=== PATIENT | male | born 1975 | race African-American/Black ===

== ENCOUNTER 2023-09-30 16:04 | Observation (INO) | payer OTHER ==
[2023-09-30 16:54] LABS: Basophils # (A) 0.1 k/uL (0-0.2); Basophils % (A) 2 %; Eosinophils # (A) 0.1 k/uL (0-0.7); Eosinophils % (A) 2 %; HCT 44.1 % (39.0-53.0); Lymphocytes # (A) 1.5 k/uL (1.0-4.8); Lymphocytes % (A) 31 %; MCH 32.8 pg (25.0-35.0); MCHC 31.7 g/dL (31.0-37.0); MCV 103.5 fL (80.0-100.0); Macrocytosis Slight; Mean Platelet Volume 8.9; Monocytes # (A) 0.3 k/uL (0-1.0); Monocytes % (A) 7 %; Neutrophils # (A) 2.8 k/uL (1.3-7.7); Neutrophils % (A) 57 %; Platelet Count 189 k/uL (150-450); RBC 4.26 m/uL (4.30-5.90); RDW 14.4 % (11.5-15.5); WBC 4.9 k/uL (3.8-10.6)
--- NOTE | 2023-09-30 17:04 | XR ---
EXAMINATION TYPE: XR chest 2V DATE OF EXAM: 09/30/2023 4:55 PM CLINICAL INDICATION:Male, 48 years old with history of Chest Pain; COMPARISON: None TECHNIQUE: XR chest 2V Frontal and lateral views of the chest. FINDINGS: Lungs/Pleura: There is no evidence of pleural effusion, focal consolidation, or pneumothorax. Pulmonary vascularity: Unremarkable. Heart/mediastinum: Cardiomediastinal silhouette is unremarkable. Musculoskeletal: No acute osseous pathology. IMPRESSION: No acute cardiopulmonary disease/process.
[2023-09-30 17:05] LABS: Partial Thromboplastin Time 24.3 sec (22.0-30.0); Prothrombin Time 10.8 sec (10.0-12.5)
[2023-09-30 17:15] LABS: ALT 42 U/L (4-49); AST 104 U/L (17-59); African American GFR (CKD) >90 (>60 ml/min/1.73 sqM); Albumin 4.9 g/dL (3.5-5.0); Alkaline Phosphatase 76 U/L (38-126); Anion Gap 19 mmol/L; Blood Urea Nitrogen 6 mg/dL (9-20); Calcium 8.6 mg/dL (8.4-10.2); Carbon Dioxide 20 mmol/L (22-30); Chloride 98 mmol/L (98-107); Glucose 72 mg/dL (74-99); Magnesium 1.3 mg/dL (1.6-2.3); Non-African American GFR(CKD) >90 (>60 ml/min/1.73 sqM); Potassium 4.3 mmol/L (3.5-5.1); Sodium 137 mmol/L (137-145); Total Bilirubin 0.8 mg/dL (0.2-1.3); Total Protein 7.6 g/dL (6.3-8.2)
[2023-09-30 17:24] LABS: Alcohol 97 mg/dL
[2023-09-30] MEDS: LORazepam 2 MG/ML INJ IV STA (18:28)
[2023-09-30] MEDS ORDERED: NALOXONE 0.4 MG/ML 1 ML VIAL IV PRN (19:22)
--- NOTE | 2023-09-30 19:22 | ED ---
Alcohol HPI - General Chief Complaint: Alcohol Stated Complaint: chest pain/etoh rethdrawl Time Seen by Provider: 09/30/23 16:10 Source: EMS Mode of arrival: EMS Limitations: no limitations - History of Present Illness Initial Comments: 48-year-old male who presents emergency department from [facility]. Presents reporting chest pain. He just checked into [facility] this morning. States that he was ambulating the hallway when he had sudden onset of chest pressure. He had numbness to his bilateral upper extremities. Nursing staff took his blood pressure and found it to be low. Upon transport to the hospital he was given 4 aspirins and a nitro. He states that his pain shortly resolved after the nitro and patient arrives pain-free. He has no history of cardiac disease. Patient is at [facility] for alcohol. States he last drink 12 hours ago. Usually drinks a pint a day. Patient does feel slightly tremulous at this time. He denies any other drug use. No other alleviating, precipitating modifying factors - Related Data Home Medications Medication Instructions Recorded Confirmed Acetaminophen Tab [Tylenol] 650 mg PO Q4H PRN 09/30/23 09/30/23 Calcium/Magnesium/Zinc/Vitamin D 1 tab PO TID PRN 09/30/23 09/30/23 Chlorpheniramine Maleate 4 mg PO Q4H PRN 09/30/23 09/30/23 [Chlor-Trimeton] Doxazosin [Cardura] 2 mg PO DAILY 09/30/23 09/30/23 Empagliflozin [Jardiance] 25 mg PO DAILY 09/30/23 09/30/23 Hyoscyamine Sulfate [Levsin] 0.125 mg PO QID PRN 09/30/23 09/30/23 Ibuprofen [Motrin Ib] 600 mg PO Q6H PRN 09/30/23 09/30/23 Insulin Glargine [Lantus Vial] 9 unit SQ HS 09/30/23 09/30/23 Insulin Regular, Human [NovoLIN R] See Protocol SQ W/LUNCH 09/30/23 09/30/23 Loperamide HCl [Imodium A-D] 4 mg PO QID PRN 09/30/23 09/30/23 Mag Hydrox/Aluminum Hyd/Simeth 30 ml PO Q4H PRN 09/30/23 09/30/23 [Mylanta Maximum Strength Liq] Multivitamins, Thera [Multivitamin 1 tab PO DAILY 09/30/23 09/30/23 (formulary)] Thiamine [Vitamin B-1] 100 mg PO DAILY 09/30/23 09/30/23 guaiFENesin [guaiFENesin Oral 200 mg PO Q4H PRN 09/30/23 09/30/23 Solution] metFORMIN HCL [Glucophage] 1,000 mg PO BID 09/30/23 09/30/23 ondansetron HCL [Ondansetron HCl] 8 mg PO Q6H PRN 09/30/23 09/30/23 Allergies Allergy/AdvReac Type Severity Reaction Status Date / Time Penicillins Allergy Unknown Verified 09/30/23 17:16 Review of Systems ROS Statement: Those systems with pertinent positive or pertinent negative responses have been documented in the HPI. ROS Other: All systems not noted in ROS Statement are negative. Past Medical History Past Medical History: Unable to Obtain History of Any Multi-Drug Resistant Organisms: None Reported Past Surgical History: Unable to Obtain Past Psychological History: Anxiety Smoking Status: Current every day smoker Past Alcohol Use History: Abuse, Daily Past Drug Use History: None Reported General Exam Limitations: no limitations General appearance: alert, in no apparent distress Head exam: Present: atraumatic, normocephalic, normal inspection Eye exam: Present: normal appearance, PERRL, EOMI. Absent: scleral icterus, conjunctival injection, periorbital swelling ENT exam: Present: normal exam, mucous membranes moist Neck exam: Present: normal inspection. Absent: tenderness, meningismus, lymphadenopathy Respiratory exam: Present: normal lung sounds bilaterally. Absent: respiratory distress, wheezes, rales, rhonchi, stridor Cardiovascular Exam: Present: regular rate, normal rhythm, normal heart sounds. Absent: systolic murmur, diastolic murmur, rubs, gallop, clicks GI/Abdominal exam: Present: soft, normal bowel sounds. Absent: distended, tenderness, guarding, rebound, rigid Extremities exam: Present: normal inspection, full ROM, normal capillary refill. Absent: tenderness, pedal edema, joint swelling, calf tenderness Back exam: Present: normal inspection Neurological exam: Present: alert, oriented X3, CN II-XII intact Psychiatric exam: Present: normal affect, normal mood Skin exam: Present: warm, dry, intact, normal color. 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 sent in by a medical professional or institution (, JOHN, HEAD SUGAR REPROCESS OPERATOR, urgent c are, hospital, or shelter...) When possible be specific @ -[No] Did you speak to anyone other than the patient for history (EMS, parent, family, police, friend...)? What history was obtained from this source @ -[No] Did you review nursing and triage notes (agree or disagree)? Why? @ -[I reviewed and agree with nursing and triage notes] Were old charts reviewed (outside hosp., previous admission, EMS record, old EKG, old radiological studies, urgent care reports/EKG's, shelter records)? Report findings @ -[No old charts were reviewed] Differential Diagnosis (chest pain, altered mental status, abdominal pain women, abdominal pain men, vaginal bleeding, weakness, fever, dyspnea, syncope, headache, dizziness, GI bleed, back pain, seizure, CVA, palpatations, mental health, musculoskeletal)? @ -[not applicable] EKG interpreted by me (3pts min.). @ -Yes and demonstrates sinus rhythm with a rate of 97. DE interval 159. QRS 96. QTc of 451. No acute ST segment elevation. Inverted T waves V3V4, 2 and aVF X-rays interpreted by me (1pt min.). @ -[None done] CT interpreted by me (1pt min.). @ -[None done] U/S interpreted by me (1pt. min.). @ -[None done] What testing was considered but not performed or refused? (CT, X-rays, U/S, labs)? Why? @ -[None] What meds were considered but not given or refused? Why? @ -[None] Did you discuss the management of the patient with other professionals (professionals i.e. , JOHN, HEAD SUGAR REPROCESS OPERATOR, lab, RT, psych nurse, socially responsible investment adviser, metal and plastic heater, teacher, product safety officer, caseworker)? Give summary @ -[No] Was smoking cessation discussed for >3mins.? @ -[No] Was critical care preformed (if so, how long)? @ -[No] Were there social determinants of health that impacted care today? How? (Homelessness, low income, unemployed, alcoholism, drug addiction, transportation, low edu. Level, literacy, decrease access to med. care, retirement, rehab)? @ -[No] Was there de-escalation of care discussed even if they declined (Discuss DNR or withdrawal of care, Hospice)? DNR status @ -[No] What co-morbidities impacted this encounter? (DM, HTN, Smoking, COPD, CAD, Cancer, CVA, ARF, Chemo, Hep., AIDS, mental health diagnosis, sleep apnea, morbid obesity)? @ -[None] Was patient admitted / discharged? Hospital course, mention meds given and route, prescriptions, significant lab abnormalities, going to OR and other pertinent info. @ -[hospital course] Undiagnosed new problem with uncertain prognosis? @ -[No] Drug Therapy requiring intensive monitoring for toxicity (Heparin, Nitro, Insulin, Cardizem)? @ -[No] Were any procedures done? @ -[No] Diagnosis/symptom? @ -[default] Acute, or Chronic, or Acute on Chronic? @ -[default] Uncomplicated (without systemic symptoms) or Complicated (systemic symptoms)? @ -[default] Side effects of treatment? @ -[No] Exacerbation, Progression, or Severe Exacerbation? @ -[No] Poses a threat to life or bodily function? How? (Chest pain, USA, MS, pneumonia, PE, COPD, DKA, ARF, appy, cholecystitis, CVA, Diverticulitis, Homicidal, Suicidal, threat to staff... and all critical care pts) @ -[No] - Lab Data Result diagrams: 09/30/23 16:27 09/30/23 16:27 Lab Results 09/30/23 09/30/23 09/30/23 Range/Units 16:27 16:27 16: WBC 4.9 (3.8-10.6) k/uL RBC 4.26 L (4.30-5.90) m/uL Hgb 14.0 (13.0-17.5) gm/dL Hct 44.1 (39.0-53.0) % MCV 103.5 H (80.0-100.0) fL MCH 32.8 (25.0-35.0) pg MCHC 31.7 (31.0-37.0) g/dL RDW 14.4 (11.5-15.5) % Plt Count 189 (150-450) k/uL MPV 8.9 Neutrophils % 57 % Lymphocytes % 31 % Monocytes % 7 % Eosinophils % 2 % Basophils % 2 % Neutrophils # 2.8 (1.3-7.7) k/uL Lymphocytes # 1.5 (1.0-4.8) k/uL Monocytes # 0.3 (0-1.0) k/uL Eosinophils # 0.1 (0-0.7) k/uL Basophils # 0.1 (0-0.2) k/uL Macrocytosis Slight PT 10.8 (10.0-12.5) sec INR 1.0 (<1.2) APTT 24.3 (22.0-30.0) sec Sodium 137 (137-145) mmol/L Potassium 4.3 (3.5-5.1) mmol/L Chloride 98 (98-107) mmol/L Carbon Dioxide 20 L (22-30) mmol/L Anion Gap 19 mmol/L BUN 6 L (9-20) mg/dL Creatinine 0.66 (0.66-1.25) mg/dL Est GFR (CKD-EPI)AfAm >90 (>60 ml/min/1.73 sqM) Est GFR (CKD-EPI)NonAf >90 (>60 ml/min/1.73 sqM) Glucose 72 L (74-99) mg/dL Calcium 8.6 (8.4-10.2) mg/dL Magnesium 1.3 L (1.6-2.3) mg/dL Total Bilirubin 0.8 (0.2-1.3) mg/dL AST 104 H (17-59) U/L ALT 42 (4-49) U/L Alkaline Phosphatase 76 (38-126) U/L Troponin I (0.000-0.034) ng/mL Total Protein 7.6 (6.3-8.2) g/dL Albumin 4.9 (3.5-5.0) g/dL Serum Alcohol 97 mg/dL 09/30/23 Range/Units 16:27 WBC (3.8-10.6) k/uL RBC (4.30-5.90) m/uL Hgb (13.0-17.5) gm/dL Hct (39.0-53.0) % MCV (80.0-100.0) fL MCH (25.0-35.0) pg MCHC (31.0-37.0) g/dL RDW (11.5-15.5) % Plt Count (150-450) k/uL MPV Neutrophils % % Lymphocytes % % Monocytes % % Eosinophils % % Basophils % % Neutrophils # (1.3-7.7) k/uL Lymphocytes # (1.0-4.8) k/uL Monocytes # (0-1.0) k/uL Eosinophils # (0-0.7) k/uL Basophils # (0-0.2) k/uL Macrocytosis PT (10.0-12.5) sec INR (<1.2) APTT (22.0-30.0) sec Sodium (137-145) mmol/L Potassium (3.5-5.1) mmol/L Chloride (98-107) mmol/L Carbon Dioxide (22-30) mmol/L Anion Gap mmol/L BUN (9-20) mg/dL Creatinine (0.66-1.25) mg/dL Est GFR (CKD-EPI)AfAm (>60 ml/min/1.73 sqM) Est GFR (CKD-EPI)NonAf (>60 ml/min/1.73 sqM) Glucose (74-99) mg/dL Calcium (8.4-10.2) mg/dL Magnesium (1.6-2.3) mg/dL Total Bilirubin (0.2-1.3) mg/dL AST (17-59) U/L ALT (4-49) U/L Alkaline Phosphatase (38-126) U/L Troponin I <0.012 (0.000-0.034) ng/mL Total Protein (6.3-8.2) g/dL Albumin (3.5-5.0) g/dL Serum Alcohol mg/dL Disposition Clinical Impression: Alcoholic intoxication, Chest pain, Alcohol withdrawal syndrome Disposition: ADMITTED IP TO THIS HOSP Condition: Stable Is patient prescribed a controlled substance at d/c from ED?: No Referrals: Mata Cooper DO [Primary Care Provider] - 1-2 days Time of Disposition: 19:21 Decision to Admit Reason: Admit from EC Decision Date: 09/30/23 Decision Time: 19:21
[2023-09-30] MEDS ORDERED: LORazepam 1 MG TAB PO PRN ×4 (19:25)
[2023-09-30] MEDS ORDERED: LORazepam 0.5 MG TAB PO PRN (19:25)
[2023-10-01 08:40] LABS: Basophils # (A) 0.08 X 10*3/uL (0.00-0.10); Basophils % (A) 1.3 %; Eosinophils # (A) 0.22 X 10*3/uL (0.04-0.35); Eosinophils % (A) 3.5 %; HCT 43.8 % (39.6-50.0); HGB 14.3 g/dL (13.0-17.0); Lymphocytes # (A) 2.16 X 10*3/uL (0.90-5.00); Lymphocytes % (A) 34.3 %; MCH 32.2 pg (27.0-32.0); MCHC 32.6 g/dL (32.0-37.0); MCV 98.6 FL (80.0-97.0); Mean Platelet Volume 11.9 FL (9.5-12.2); Monocytes # (A) 1.01 X 10*3/uL (0.20-1.00); NRBC Per 100 WBC 0 X 10*3/uL (0.00-0.01); Neutrophils # (A) 2.81 X 10*3/uL (1.80-7.70); Neutrophils % (A) 44.6 %; Platelet Count 191 X 10*3/uL (140-440); RBC 4.44 X 10*6/uL (4.40-5.60); RDW 15.4 % (11.5-14.5)
[2023-10-01 08:51] LABS: BUN/Creat Ratio 10.38 Ratio (12.00-20.00); Blood Urea Nitrogen 8.3 mg/dL (9.0-27.0); Calcium 8.5 mg/dL (8.7-10.3); Carbon Dioxide 20.8 mmol/L (21.6-31.8); Chloride 95 mmol/L (96-109); Glucose 68 mg/dL (70-110); Potassium 4.3 mmol/L (3.5-5.5); Sodium 136 mmol/L (135-145)
[2023-10-01] MEDS: DAPAGLIFLOZIN PROPANEDIOL 10 MG TABLET PO SCH (09:23)
[2023-10-01] MEDS: hydrALAZINE HCL 25 MG TAB PO STA (09:23)
[2023-10-01] MEDS ORDERED: guaiFENesin SYRUP 100MG/5ML 200 MG/10 ML CUP PO PRN (10:38)
[2023-10-01] MEDS ORDERED: ACETAMINOPHEN TAB 325 MG TAB PO PRN (10:38)
[2023-10-01] MEDS ORDERED: MAG HYDROX/AL HYDROX/SIMETH 30 ML CUP PO PRN (10:38)
[2023-10-01] MEDS ORDERED: ONDANSETRON 4 MG TAB PO PRN (10:38)
[2023-10-01] MEDS ORDERED: LOPERAMIDE 2 MG CAP PO PRN (10:38)
[2023-10-01] MEDS ORDERED: IBUPROFEN 600 MG TAB PO PRN (10:38)
[2023-10-01] MEDS ORDERED: DEXTROSE 50% SYRINGE 50 ML IVP PRN ×4 (10:39→15:04)
--- NOTE | 2023-10-01 11:07 | P.CRDCN ---
History of Present Illness Consult date: 10/01/23 Consult reason: chest pain History of present illness: This is a 48-year-old male with past medical history of hypertension, diabetes mellitus type 2. We have been asked to evaluate the patient for chest pain. Patient states that he came into the hospital due to chest tightness that started yesterday but is gone now. He is not sure how long it lasted. He thinks nitroglycerin helped. He also had some nausea but his appetite is okay and he denies any abdominal pain. He denies any history of cardiac problems and does not follow with a rn diabetes educator. He has had a stress test done a while back. Patient is drinking beer and vodka on almost a daily basis at 1 pint per day. He states his last intake was yesterday. He denies ever having DTs or requiring ICU admission for alcohol withdrawal. He states he feels sober now. He is a smoker of a half a pack per day he denies marijuana use. Blood pressure 152/85, heart rate 84, pulse ox 97% on room air. Patient was started on the CIWA protocol. EKG: Sinus rhythm with T wave inversion V3 V4 Chest x-ray: No acute process Laboratory studies: WBC 6.3, hemoglobin 14.3. Sodium 136, potassium 4.3. BUN 8.3 and creatinine 0.8. Troponins are negative x 3. Serum alcohol level 97. Home cardiac medications: Jardiance 25 mg daily. Review Of Systems: At the time of my exam: CONSTITUTIONAL: Denies fever or chills. HEENT: Denies blurred vision, vision changes, or eye pain. Denies hemoptysis CARDIOVASCULAR: Denies chest pain. Denies orthopnea. Denies PND. Denies palpitations RESPIRATORY: Denies shortness of breath. GASTROINTESTINAL: Denies abdominal pain. Denies nausea or vomiting. HEMATOLOGIC: Denies bleeding disorders. GENITOURINARY: Denies any blood in urine. SKIN: Denies puritis. Denies rash. Physical examination: Gen: This is [ ] VS: reviewed HEENT: Head is atraumatic, normocephalic. Pupils equal, round. Sclerae is anicteric. NECK: Supple. No JVD. LUNGS: Clear to auscultation. No wheezes or rhonchi. No intercostal retractions. HEART: Regular rate and rhythm. No murmur. ABDOMEN: Soft No tenderness. EXTREMITIES: No pedal edema. No calf tenderness. NEUROLOGICAL: Patient is awake, alert and oriented x3. Assessment: Atypical chest pain, acute coronary syndrome ruled out by negative troponins Elevated blood pressure Alcohol abuse Tobacco use and dependence Plan: Patient will be given 1 dose of hydralazine 25 mg Schedule patient for stress echocardiogram today Obtain 2-D echocardiogram and Doppler study to assess cardiac structure and function If testing is unremarkable, patient is cleared for discharge from cardiology Smoking cessation. Patient will be provided the [place] quit line information at discharge. Thank you kindly for this consultation. Nurse practitioner note has been reviewed, I agree with documented findings and plan of care. Patient was seen and examined. Past Medical History Past Medical History: Unable to Obtain History of Any Multi-Drug Resistant Organisms: None Reported Past Surgical History: Unable to Obtain Past Psychological History: Anxiety Smoking Status: Current every day smoker Past Alcohol Use History: Abuse, Daily Past Drug Use History: None Reported Medications and Allergies Home Medications Medication Instructions Recorded Confirmed Type Acetaminophen Tab [Tylenol] 650 mg PO Q4H PRN 09/30/23 09/30/23 History Calcium/Magnesium/Zinc/Vitamin D 1 tab PO TID PRN 09/30/23 09/30/23 History Chlorpheniramine Maleate 4 mg PO Q4H PRN 09/30/23 09/30/23 History [Chlor-Trimeton] Doxazosin [Cardura] 2 mg PO DAILY 09/30/23 09/30/23 History Empagliflozin [Jardiance] 25 mg PO DAILY 09/30/23 09/30/23 History Hyoscyamine Sulfate [Levsin] 0.125 mg PO QID PRN 09/30/23 09/30/23 History Ibuprofen [Motrin Ib] 600 mg PO Q6H PRN 09/30/23 09/30/23 History Insulin Glargine [Lantus Vial] 9 unit SQ HS 09/30/23 09/30/23 History Insulin Regular, Human [NovoLIN R] See Protocol SQ W/LUNCH 09/30/23 09/30/23 History Loperamide HCl [Imodium A-D] 4 mg PO QID PRN 09/30/23 09/30/23 History Mag Hydrox/Aluminum Hyd/Simeth 30 ml PO Q4H PRN 09/30/23 09/30/23 History [Mylanta Maximum Strength Liq] Multivitamins, Thera [Multivitamin 1 tab PO DAILY 09/30/23 09/30/23 History (formulary)] Thiamine [Vitamin B-1] 100 mg PO DAILY 09/30/23 09/30/23 History guaiFENesin [guaiFENesin Oral 200 mg PO Q4H PRN 09/30/23 09/30/23 History Solution] metFORMIN HCL [Glucophage] 1,000 mg PO BID 09/30/23 09/30/23 History ondansetron HCL [Ondansetron HCl] 8 mg PO Q6H PRN 09/30/23 09/30/23 History Allergies Allergy/AdvReac Type Severity Reaction Status Date / Time Penicillins Allergy Unknown Verified 09/30/23 17:16 Physical Exam Vitals: Vital Signs Temp Pulse Pulse Pulse Resp BP BP 10/01/23 07:25 98.6 F 84 17 152/85 10/01/23 02:29 98.2 F 84 15 154/71 09/30/23 23:00 98.3 F 91 15 168/95 09/30/23 22:14 93 18 150/99 09/30/23 19:46 96 16 142/83 09/30/23 17:45 91 18 138/72 09/30/23 16:13 96 09/30/23 16:08 99.1 F 97 18 130/74 Pulse Ox 10/01/23 07:25 97 10/01/23 02:29 96 09/30/23 23:00 96 09/30/23 22:14 95 09/30/23 19:46 94 L 09/30/23 17:45 94 L 09/30/23 16:13 09/30/23 16:08 95 Intake and Output 09/30/23 10/01/23 10/01/23 22:59 06:59 14:59 Other: # Voids 1 Weight 77.111 kg Results 10/01/23 06:02 10/01/23 06:02 Cardiac Enzymes 09/30/23 09/30/23 09/30/23 Range/Units 16:27 16:27 20:20 AST 104 H (17-59) U/L Troponin I <0.012 <0.012 (0.000-0.034) ng/mL 10/01/23 Range/Units 00:27 AST (17-59) U/L Troponin I <0.012 (0.000-0.034) ng/mL Coagulation 09/30/23 Range/Units 16:27 PT 10.8 (10.0-12.5) sec APTT 24.3 (22.0-30.0) sec CBC 09/30/23 Range/Units 16:27 WBC 4.9 (3.8-10.6) k/uL RBC 4.26 L (4.30-5.90) m/uL Hgb 14.0 (13.0-17.5) gm/dL Hct 44.1 (39.0-53.0) % Plt Count 189 (150-450) k/uL Comprehensive Metabolic Panel 09/30/23 Range/Units 16:27 Sodium 137 (137-145) mmol/L Potassium 4.3 (3.5-5.1) mmol/L Chloride 98 (98-107) mmol/L Carbon Dioxide 20 L (22-30) mmol/L BUN 6 L (9-20) mg/dL Creatinine 0.66 (0.66-1.25) mg/dL Glucose 72 L (74-99) mg/dL Calcium 8.6 (8.4-10.2) mg/dL AST 104 H (17-59) U/L ALT 42 (4-49) U/L Alkaline Phosphatase 76 (38-126) U/L Total Protein 7.6 (6.3-8.2) g/dL Albumin 4.9 (3.5-5.0) g/dL Current Medications Generic Name Dose Route Start Last Admin Trade Name Freq PRN Reason Stop Dose Admin Lorazepam 0.5 mg 09/30/23 19:25 Lorazepam 0.5 Mg Tab PO Q4HR PRN Ciwa 4 To 5 Lorazepam 1 mg 09/30/23 19:25 Lorazepam 1 Mg Tab PO Q4HR PRN Ciwa 6 To 7 Lorazepam 2 mg 09/30/23 19:25 Lorazepam 1 Mg Tab PO Q2HR PRN Ciwa 10 or greater Lorazepam 2 mg 09/30/23 19:25 Lorazepam 1 Mg Tab PO Q3HR PRN Ciwa 8 To 9 Lorazepam 1 mg 09/30/23 19:25 Lorazepam 1 Mg Tab PO Q1HR PRN Alcohol Withdrawal Naloxone HCl 0.2 mg 09/30/23 19:22 Naloxone 0.4 Mg/Ml 1 Ml Vial IV Q2M PRN Opioid Reversal Intake and Output 09/30/23 10/01/23 10/01/23 22:59 06:59 14:59 Other: # Voids 1 Weight 77.111 kg 09/30/23 16:27 09/30/23 16:27
--- NOTE | 2023-10-01 12:19 | CA ---
Transthoracic Echo Report Name: Isaias Fried Age: 48 Gender: M : 1975 Exam Date: 10/01/2023 11:30 Exam Location: [facility] Ht (in): 68 Wt (lb): 170 Ordering Physician: Susie Khan Attending/Referring Phys: [id number], Bill Maintenance Director Paola Lowe RDCS Procedure CPT: Indications: LVF Cardiac Hx: Technical Quality: Fair Contrast 1: Total Dose (mL): Contrast 2: Total Dose (mL): MEASUREMENTS (Male / Female) Normal Values 2D ECHO LV Diastolic Diameter PLAX 4.0 cm 4.2 - 5.9 / 3.9 - 5.3 cm LV Systolic Diameter PLAX 2.7 cm IVS Diastolic Thickness 1.3 cm 0.6 - 1.0 / 0.6 - 0.9 cm LVPW Diastolic Thickness 1.3 cm 0.6 - 1.0 / 0.6 - 0.9 cm LV Relative Wall Thickness 0.7 RV Internal Dim ED PLAX 3.2 cm LA Volume 46.5 cm??? 18 - 58 / 22 - 52 cm??? LA Volume Index 24.0 cm???/m??? 16 - 28 cm???/m??? M-MODE Aortic Root Diameter MM 3.1 cm LA Systolic Diameter MM 3.7 cm LA Ao Ratio MM 1.2 AV Cusp Separation MM 1.8 cm DOPPLER AV Peak Velocity 171.2 cm/s AV Peak Gradient 11.7 mmHg AV Mean Velocity 116.3 cm/s AV Mean Gradient 6.2 mmHg AV Velocity Time Integral 31.0 cm LVOT Peak Velocity 99.0 cm/s LVOT Peak Gradient 3.9 mmHg LVOT Velocity Time Integral 19.2 cm MV Area PHT 4.2 cm??? Mitral E Point Velocity 68.4 cm/s Mitral A Point Velocity 88.2 cm/s Mitral E to A Ratio 0.8 MV Deceleration Time 178.9 ms MV E' Velocity 4.3 cm/s Mitral E to MV E' Ratio 16.0 TR Peak Velocity 185.8 cm/s TR Peak Gradient 13.8 mmHg Right Ventricular Systolic Press 18.8 mmHg FINDINGS Left Ventricle Mildly increased left ventricular wall thickness. Left ventricular cavity size normal. Normal left ventricular systolic function with no obvious regional wall motion abnormalities. Left ventricular ejection fraction is estimated at 55 %. Normal left ventricular diastolic filling pattern. Right Ventricle Normal right ventricular size and function. Right ventricular systolic pressure within normal limits. Right Atrium Normal right atrial size. Left Atrium Normal left atrial size. Mitral Valve Structurally normal mitral valve. No mitral stenosis, regurgitation or prolapse. Aortic Valve Trileaflet aortic valve. No aortic valve stenosis or regurgitation. Tricuspid Valve Structurally normal tricuspid valve. Mild tricuspid regurgitation. Pulmonic Valve Structurally normal pulmonic valve. Pericardium No pericardial effusion. epicardial fat Aorta Normal size aortic root and proximal ascending aorta. CONCLUSIONS LVEF estimated 55 to 60% Normal LV cavity size. Mild concentric LVH Normal RV size and systolic function No significant chamber size abnormality No significant valvular dysfunction Previewed by: Dr Janusz Gonzales (Electronically Signed) Final Date: 01 October 2023 12:18
[2023-10-01 12:45] LABS: Glucose,Whole Blood 91 mg/dL (70-110)
--- NOTE | 2023-10-01 12:57 | CA ---
Stress Echo Report Isaias Fried Age: 48 Gender: M : 1975 Exam Date: 10/01/2023 11:19 Exam Location: [facility] Ht (in): 68 Wt (lb): 170 Ordering Physician: Susie Khan Referring Physician: Bill BENNETT Placement Officer: Anna Vernon RDCS Technologist Paola Lowe RDCS Procedure CPT: Indication: Chest Pain ICD-9 Codes: Rhythm: Patient History: CP, PALP, HTN, DM, CHOL, TOB Cardiac Medications: SEE CHART Medications in past 24 hours: Contrast: N/A Stress Results Protocol: Marcos Total dose(mL): Exercise Duration (min:sec): 5:[address] Depression (mm): Angina Score: Kirby Score: METS: 7.1 Resting HR: 108 Resting BP: 165 / 101 Peak HR: 151 Peak BP: 220 / 113 Max Predicted HR: 170 89 % Max Predicted HR Target HR: 145 Double Product: [id number] Stress Summary: Patient exercised on Marcos protocol for 5 minutes 44 seconds achieving 7.1 METS which is low for patient's age. Patient was hypertensive at baseline with SBP 165/101 mmHg. His peak stress blood pressure was 220 /113 mmHg. BP Response: Reason for Termination: Reached target heart rate or work-load, Abnormal rise in blood pressure Cardiac Symptoms: ASYMPTOMATIC ECG Analysis Resting ECG: Normal sinus rhythm, normal axis, T wave inversion lead V3 and V4. Stress ECG: There were no significant ST or T wave changes that are diagnostic for ischemia by ST segment analysis. Arrhythmia: There were no sustained arrhythmias or ectopic beats noted during the stress Echo Analysis Resting Echo: There is normal global and segmental systolic function. There is no stress-induced regional wall motion abnormality Peak Echo Analysis: There is mild mid to distal anterolateral and lateral wall hypokinesia noticed on peak stress imaging. MEASUREMENTS (Male/Female) Normal Values CONCLUSIONS Probably abnormal treadmill echo stress test Possible stress-induced mild mid to distal anterolateral and lateral wall hypokinesia Normal resting echocardiogram Abnormal resting ECG, with no stress-induced ischemic ECG changes more than baseline Hypertensive at baseline Dr Janusz Gonzales (Electronically Signed) Final Date: 01 October 2023 12:56
[2023-10-01] MEDS: INSULIN ASPART (NovoLOG) 100 UNIT/ML VIAL SQ SCH (13:47)
[2023-10-01] MEDS ORDERED: ALPRAZolam 0.5 MG TAB PO PRN (14:13)
[2023-10-01] MEDS ORDERED: NITROGLYCERIN SL TABS 0.4 MG TAB SUBLINGUAL PRN (14:13)
[2023-10-01] MEDS ORDERED: ALPRAZolam 0.25 MG TAB PO PRN (14:13)
[2023-10-01] MEDS: MULTIVITAMINS, THERA 1 EACH TAB PO SCH (14:21)
[2023-10-01] MEDS: THIAMINE 100 MG TAB PO SCH (14:21)
[2023-10-01] MEDS: SODIUM CHLORIDE 0.9% 1,000 ML in EMPTY BAG 1 BAG IV SCH (14:23)
[2023-10-01] MEDS ORDERED: Magnesium Replacement Protocol 1 EACH MISC MISCELLANE PRN (15:04)
[2023-10-01] MEDS ORDERED: diphenhydrAMINE 25 MG CAP PO PRN (15:04)
[2023-10-01] MEDS ORDERED: Potassium Replacement Protocol 1 EACH MISC MISCELLANE PRN (15:04)
[2023-10-01] MEDS: chlordiazePOXIDE 25 MG CAP PO SCH (16:45)
[2023-10-01] MEDS: DEXTROSE 5%-0.9% NACL 1,000 ML IV SCH (16:48)
[2023-10-01 17:41] LABS: Glucose,Whole Blood 124 mg/dL (70-110)
[2023-10-01] MEDS: SODIUM CHLORIDE 0.9% 1,000 ML IV SCH (17:43)
[2023-10-01 20:43] LABS: Glucose,Whole Blood 124 mg/dL (70-110)
--- NOTE | 2023-10-01 23:10 | HP ---
HISTORY AND PHYSICAL CHIEF COMPLAINT: Chest pain and alcohol withdrawal. HISTORY OF PRESENT ILLNESS: This is a 48-year-old gentleman, who was admitted to [place] for alcohol abuse. The patient had chest pain which was felt in the anterior part of the chest like pressure type of pain. The patient was sent to [facility] and stress test showed possible ischemia. The patient was admitted for further evaluation and treatment. The patient also had profusely sweating and features of early delirium tremens at this time. PAST MEDICAL HISTORY: Reviewed include EtOH, anxiety. Rest of the history and rest of the chart is also reviewed. HOME MEDICATIONS: Reviewed include thiamine and dose and rest of medications reviewed. ALLERGIES: Penicillin. FAMILY HISTORY: No history of heart disease or strokes in the family. SOCIAL HISTORY: No smoking or alcohol abuse. REVIEW OF SYSTEMS: Fourteen-point review is negative except as mentioned earlier. PHYSICAL EXAMINATION: VITAL SIGNS: Pulse 84, blood pressure 152/84, respirations 17. HEENT: Conjunctivae normal. NECK: No JVD. CARDIOVASCULAR: S1, S2. RESPIRATIONS: Breath sounds diminished at the bases. No rhonchi. No crackles. ABDOMEN: Soft. LEGS: No edema. NERVOUS SYSTEM: Diffusely weak and tremors also present. LABORATORY DATA: Reviewed. ASSESSMENT: 1. Chest pain, possible unstable angina with abnormal stress test. 2. Acute delirium tremens, and alcohol withdrawal. 3. Hypoglycemia. 4. History of anxiety. 5. History of nicotine dependence. RECOMMENDATIONS AND DISCUSSION: This is a 48-year-old gentleman, who presented with multiple complex medical issues, we will monitor the patient closely. Continue the current medications, continue symptomatic treatment. I would recommend beta-blockers, antiplatelet agents, possible cardiac cath, and I would also recommend DT prophylaxis, Ativan protocol. Prognosis extremely guarded. Also recommend D5 water drip also and guarded prognosis. Further recommendations to follow. See orders for further details. MMODL / IJN: [id number] /
[2023-10-02] MEDS: ATORVASTATIN 80 MG TAB PO ONE (05:31)
[2023-10-02] MEDS: ASPIRIN 325 MG TAB PO ONE (05:31)
[2023-10-02 05:33] LABS: Glucose,Whole Blood 91 mg/dL (70-110)
[2023-10-02] MEDS ORDERED: HEPARIN SODIUM,PORCINE 10,000 UNIT in SODIUM CHLORIDE 0.9% 1,000 ML IRRIGATION PRN (07:00)
[2023-10-02] MEDS ORDERED: HEPARIN SODIUM,PORCINE (1 ML) 2,500 UNIT in SODIUM CHLORIDE 0.9% 250 ML IRRIGATION PRN (07:00)
[2023-10-02] MEDS: hydrALAZINE HCL 25 MG TAB PO SCH (09:09)
[2023-10-02] MEDS ORDERED: LIDOCAINE 1% INJ 10MG/ML (20 ML MDV) ONE (09:31)
[2023-10-02] MEDS ORDERED: fentaNYL (PF) 50 MCG/ML 2 ML AMP ONE (09:31)
[2023-10-02] MEDS ORDERED: HEPARIN SODIUM 1,000 UN/ML (10ML VL) ONE (09:31)
[2023-10-02] MEDS ORDERED: VERAPAMIL 2.5 MG/ML 2 ML AMP ONE ×2 (09:31→09:37)
[2023-10-02] MEDS: MIDAZOLAM 2 MG/2 ML VIAL IVP ONE (10:12)
[2023-10-02] MEDS: fentaNYL (PF) 50 MCG/ML 2 ML AMP IVP ONE (10:12)
[2023-10-02] MEDS: LIDOCAINE 1% INJ 10MG/ML (20 ML MDV) SQ ONE (10:13)
[2023-10-02] MEDS: VERAPAMIL SYRINGE (5 MG/10 ML) INTRAARTER ONE (10:16)
[2023-10-02] MEDS: HEPARIN SODIUM 1,000 UN/ML (10ML VL) IVP ONE (10:19)
[2023-10-02] MEDS: SODIUM CHLORIDE 0.9% 1,000 ML IV ONE (10:29)
[2023-10-02] MEDS: IOPAMIDOL-370 200ML BTL INJ ONE (10:29)
[2023-10-02 10:34] LABS: Basophils # (A) 0.06 X 10*3/uL (0.00-0.10); Basophils % (A) 1.1 %; Eosinophils # (A) 0.38 X 10*3/uL (0.04-0.35); Eosinophils % (A) 7.1 %; HGB 15.9 g/dL (13.0-17.0); Lymphocytes # (A) 1.84 X 10*3/uL (0.90-5.00); Lymphocytes % (A) 34.2 %; MCH 33.3 pg (27.0-32.0); MCHC 34.6 g/dL (32.0-37.0); MCV 96.2 FL (80.0-97.0); Mean Platelet Volume 11.2 FL (9.5-12.2); Monocytes % (A) 11.2 %; NRBC Per 100 WBC 0 X 10*3/uL (0.00-0.01); Neutrophils # (A) 2.48 X 10*3/uL (1.80-7.70); Platelet Count 165 X 10*3/uL (140-440); RBC 4.78 X 10*6/uL (4.40-5.60); RDW 14.7 % (11.5-14.5); WBC 5.38 X 10*3/uL (4.50-10.00)
[2023-10-02 10:36] LABS: ALT 49 U/L (10-49); AST 133 U/L (14-35); Albumin 4.7 g/dL (3.8-4.9); Albumin/Globulin Ratio 1.74 Ratio (1.60-3.17); Alkaline Phosphatase 80 U/L (41-126); BUN/Creat Ratio 14.43 Ratio (12.00-20.00); Blood Urea Nitrogen 10.1 mg/dL (9.0-27.0); Calcium 8.6 mg/dL (8.7-10.3); Carbon Dioxide 23.7 mmol/L (21.6-31.8); Chloride 96 mmol/L (96-109); Globulin 2.7 g/dL (1.6-3.3); Glucose 100 mg/dL (70-110); Magnesium 1.5 mg/dL (1.5-2.4); Potassium 3.8 mmol/L (3.5-5.5); Sodium 136 mmol/L (135-145); Total Protein 7.4 g/dL (6.2-8.2)
[2023-10-02] MEDS ORDERED: RX INFO: IV CONTRAST WAS GIVEN 1 EACH MISC MISCELLANE PRN (12:00)
--- NOTE | 2023-10-02 12:02 | P.PN ---
Subjective Progress Note Date: 10/02/23 Consult reason: chest pain History of present illness: This is a 48-year-old male with past medical history of hypertension, diabetes mellitus type 2. We have been asked to evaluate the patient for chest pain. Patient states that he came into the hospital due to chest tightness that started yesterday but is gone now. He is not sure how long it lasted. He thinks nitroglycerin helped. He also had some nausea but his appetite is okay and he denies any abdominal pain. 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 He has had a stress test done a while back. Patient is drinking beer and vodka on almost a daily basis at 1 pint per day. He states his last intake was yesterday. He denies ever having DTs or requiring ICU admission for alcohol withdrawal. He states he feels sober now. He is a smoker of a half a pack per day he denies marijuana use. Blood pressure 152/85, heart rate 84, pulse ox 97% on room air. Patient was started on the CIWA protocol. EKG: Sinus rhythm with T wave inversion V3 V4 Chest x-ray: No acute process Laboratory studies: WBC 6.3, hemoglobin 14.3. Sodium 136, potassium 4.3. BUN 8.3 and creatinine 0.8. Troponins are negative x 3. Serum alcohol level 97. Home cardiac medications: Jardiance 25 mg daily. 10/01 Patient is seen today on the observation unit. He underwent cardiac catheterization this morning with Dr. Gonzales which found normal coronary arteries. Blood pressure 152/103, heart rate 93, pulse ox 97% on room air, afebrile. Echocardiogram reveals EF of 55% to 60%. Mild concentric left ventricular hypertrophy. Physical examination: Gen: This is a 48-year-old male in no acute distress VS: reviewed HEENT: Head is atraumatic, normocephalic. Pupils equal, round. Sclerae is anicteric. NECK: Supple. No JVD. LUNGS: Clear to auscultation. No wheezes or rhonchi. No intercostal retractions. HEART: Regular rate and rhythm. No murmur. ABDOMEN: Soft No tenderness. EXTREMITIES: No pedal edema. No calf tenderness. NEUROLOGICAL: Patient is awake, alert and oriented x3. Assessment: Atypical chest pain, acute coronary syndrome ruled out by negative troponins and cardiac catheterization Hypertension Alcohol abuse Tobacco use and dependence Plan: Patient will be started on amlodipine 5 mg daily and Lipitor 20 mg daily. Smoking cessation. Patient will be provided the [facility] quit line information at discharge. Patient is cleared for discharge from cardiology and may follow-up in the office in 1 to [address] Gonzales. Nurse practitioner note has been reviewed, I agree with documented findings and plan of care. Patient was seen and examined. Objective - Vital Signs Vital signs: Vital Signs Temp 98.2 F 10/02/23 07:00 Pulse 93 10/02/23 07:00 Resp 17 10/02/23 07:00 BP 152/104 10/02/23 07:00 Pulse Ox 97 10/02/23 07:00 FiO2 Intake & Output 10/01/23 10/02/23 10/02/23 18:59 06:59 18:59 Intake Total 240 Balance 240 Intake: Oral 240 Other: # Voids 2 1 - Labs CBC & Chem 7: 10/02/23 07:16 10/02/23 07:16 Labs: Abnormal Lab Results - Last 24 Hours (Table) 10/01/23 10/01/23 10/01/23 Range/Units 06:02 06:02 17:40 MCV 98.6 H (80.0-97.0) FL MCH 32.2 H (27.0-32.0) pg RDW 15.4 H (11.5-14.5) % Monocytes # 1.01 H (0.20-1.00) X 10*3/uL Chloride 95 L (96-109) mmol/L Carbon Dioxide 20.8 L (21.6-31.8) mmol/L Anion Gap 20.20 H (4.00-12.00) mmol/L BUN 8.3 L (9.0-27.0) mg/dL BUN/Creatinine Ratio 10.38 L (12.00-20.00) Ratio Glucose 68 L (70-110) mg/dL POC Glucose (mg/dL) 124 H (70-110) mg/dL Calcium 8.5 L (8.7-10.3) mg/dL 10/01/23 Range/Units 20:41 MCV (80.0-97.0) FL MCH (27.0-32.0) pg RDW (11.5-14.5) % Monocytes # (0.20-1.00) X 10*3/uL Chloride (96-109) mmol/L Carbon Dioxide (21.6-31.8) mmol/L Anion Gap (4.00-12.00) mmol/L BUN (9.0-27.0) mg/dL BUN/Creatinine Ratio (12.00-20.00) Ratio Glucose (70-110) mg/dL POC Glucose (mg/dL) 124 H (70-110) mg/dL Calcium (8.7-10.3) mg/dL
[2023-10-02 12:19] LABS: Glucose,Whole Blood 182 mg/dL (70-110)
[2023-10-02 13:13] VITALS: RESP 16; TEMP 98.5
[2023-10-02] MEDS: SODIUM CHLORIDE 0.9% 1,000 ML IV SCH (13:47)
[2023-10-02 15:08] VITALS: BP 135/92; PULSE 95
--- NOTE | 2023-10-03 19:18 | P.CARDCATH ---
Date of Procedure: 10/03/23 Description of Procedure: DIAGNOSTIC CORONARY ANGIOGRAPHY and LEFT HEART CATH REPORT PROCEDURES PERFORMED: Left heart catheterization Selective coronary angiography Moderate conscious sedation [25] mins Right radial access INDICATION: 48-year-old male with past medical history of alcohol use, hypertension presented to the hospital with substernal chest pressure-like symptoms. He underwent a treadmill echo stress test where the stress echocardiogram showed possible mid to distal anterolateral wall hypokinesia. Due to his positive stress test he was scheduled for heart catheterization procedure. CONSENT: I have explained the procedural steps of above-mentioned procedures in layman's terms to the patient. I discussed the risks (including but not limited to stroke, emergent vascular or cardiac surgery or ), benefits and alternative therapies for the above-mentioned procedure. I discussed the risks of sedation/analgesia and blood product administration (if indicated). The patient has indicated understanding and acceptance of these risks. Conscious Sedation: Patient's ECG, heart rate, blood pressure, pulse oximetry were monitored throughout the duration of procedure under my direct supervision. [2] mg Versed and [50] mg Fentanyl were used for induction of moderate conscious sedation. Total duration of moderate concious sedation [25] minutes. PROCEDURE: After explaining the risks, benefits and alternatives of the above mentioned procedures in detail to the patient, informed consent was obtained. Patient was taken to the catheterization lab, prepped and draped in usual sterile fashion using universal precuations. Barbow and el test were performed to confirm adequate perfusion to fingers. Ultrasound was used to identify the radial artery. 1% lidocaine was infiltrated over the right radial artery. A 6-Frisian sheath was placed and secured in the right radial artery using modified Seldinger technique. The sheath was flushed and 5 mg verapamil was administered intra-arterially. J tipped wire was advanced under fluoroscopic guidance. Once the wire tip reached aortic root 4000 units of IV heparin was given. Over the wire JR4 diagnostic catheter was advanced. The wire in place the catheter was manipulated to cross the aortic valve and entered into LV under fluoroscopy guidance. The wire was removed and the catheter was flushed. LV pressures were obtained and pullback was performed under fluoroscopy. Catheter was manipulated to selectively engage the right coronary ostium. Right coronary angiography was performed in different angiographic projections. The JR4 diagnostic catheter was exchanged for a JL 4 diagnostic catheter over the J-wire. The wire was removed, catheter was flushed and manipulated under fluoroscopy to selectively engaged the left coronary ostium. Left coronary angioplasty was performed in different angiographic projections. Catheter was removed over the wire. Radial sheath was flushed. The right radial sheath was removed and a TR band was placed with excellent patent hemostasis was achieved. The patient tolerated the procedure well. Patient was transported back to the post catheterization holding area in stable condition. Angiographic images were reviewed in detail. HEMODYNAMICS: Aortic Pressure: 138/87 mmHg. LV pressure: 140/3 mmHg. LVEDP 8 mmHg. There was no significant gradient across the aortic valve. SELECTIVE CORONARY ARTERIOGRAPHY: LEFT MAIN: The left main is a large caliber vessel which bifurcates into the LAD and circumflex. Left main appears angiographically normal. LEFT ANTERIOR DESCENDING CORONARY ARTERY: LAD is a large caliber vessel which wraps around to the apex. Proximal LAD appears angiographically normal. Mid LAD appears angiographically normal. Distal LAD appears angiographically normal. It gives rise to diagonal branches appears to angiographically normal. LEFT CIRCUMFLEX CORONARY ARTERY: It is nondominant vessel. Left circumflex is a moderate caliber vessel. It appears angiographically normal. RIGHT CORONARY ARTERY: Dominant vessel. The right coronary artery is a large caliber vessel which gives PDA and PLV branch. Proximal RCA has mild luminal irregularities. Mid and distal RCA appears angiographically normal. PDA and PL branch appears angiographically normal. IMPRESSION: Angiographically normal coronary arteries as described above. Normal left sided filling pressures PLAN: Aggressive risk factor modification per most recent ACC/AHA guidelines. Recommend good blood pressure control 125 cc fluids for 3 hours Discharge home in 3 hours Follow-up in the office in 1-2 weeks. Performing Physician Janusz Gonzales MD, FACC, RPVI Thank you for allowing [facility] to participate in this patient's care. Feel free to reach out in case of any followup questions.
--- NOTE | 2023-10-04 18:31 | P.DS ---
Providers Date of admission: 09/30/23 19:25 Expected date of discharge: 10/02/23 Attending physician: Adrian Guo Consults: 09/30/23 19:22 Consult Physician Urgent Consulting Provider: [facility] Reason/Comments: acute chest pain, possible acs Do you want consulting provider notified?: Yes Primary care physician: Mata Cooper [facility] Hospital Course: Final diagnosis Chest pain, possible unstable angina with abnormal stress test. Patient is status post cardiac catheterization Acute delirium tremens and acute alcohol withdrawal, was at [place] most recently Hypoglycemia History of anxiety History of nicotine dependence GI prophylaxis DVT prophylaxis Full code Discharge disposition Patient is being discharged in a stable condition with guarded prognosis to [facility] [place] for continued rehab. Patient will follow-up with Dr. Cooper in the outpatient setting upon discharge. Patient is to continue with current medications as prescribed and outpatient follow-up with cardiology as scheduled. Total time taken is greater than 35 minutes. Hospital course This is a 48-year-old male who was recently admitted with chest pain being closely monitored with cardiology following. Patient initially underwent stress test which showed areas of possible reversible ischemia and recommended cardiac catheterization. Patient underwent cardiac catheterization which was negative and no intervention required recommending outpatient follow-up with cardiology. Patient was presently at [facility] [place] for alcohol rehab and will return there. Continue Librium taper on discharge. Patient instructed to follow-up with his primary care provider on discharge from rehab. Please refer to cardiology note for further HPI. Currently no reports of chest pain, shortness of breath, or palpitations. Patient is afebrile. No reports of nausea or vomiting and patient is tolerating diet. Patient will be going to [place] today. Physical exam: Gen: This is a 48-year-old male who is awake, alert and oriented x 3, well- developed, well-nourished HEENT: Head is atraumatic, normocephalic. Pupils equal, round. Sclerae is anicteric. NECK: Supple. No JVD. No lymphadenopathy. No thyromegaly. LUNGS: Clear to auscultation. No wheezes or rhonchi. No intercostal retractions. HEART: S1, S2 are muffled ABDOMEN: Soft. Bowel sounds are present. No masses. No tenderness. EXTREMITIES: No pedal edema. No calf tenderness. NEUROLOGICAL: Patient is awake, alert and oriented x3. Cranial nerves 2 through 12 are grossly intact. Please refer to medication reconciliation sheet for a list of medications. The impression and plan of care has been dictated by Sultana Arthur, Nurse Practitioner as directed. Dr. Brant MD I have performed a history and examination and MDM of this patient, discussed the same with the dictator, and agree with the dictator's assessment and plan as written ,documented as a scribe. Based on total visit time, I have performed more than 50% of the visit. Patient Condition at Discharge: Stable Plan - Discharge Summary New Discharge Prescriptions: New Nitroglycerin Sl Tabs [Nitrostat] 0.4 mg SUBLINGUAL Q5M PRN #20 tab PRN Reason: Chest Pain chlordiazePOXIDE HCl [Librium] 50 mg PO TID #15 cap Atorvastatin [Lipitor] 20 mg PO HS #90 tablet amLODIPine [Norvasc] 5 mg PO DAILY #90 tab Continue Thiamine [Vitamin B-1] 100 mg PO DAILY Mag Hydrox/Aluminum Hyd/Simeth [Mylanta Maximum Strength Liq] 30 ml PO Q4H PRN PRN Reason: Gi Upset Hyoscyamine Sulfate [Levsin] 0.125 mg PO QID PRN PRN Reason: Gi Upset guaiFENesin [guaiFENesin Oral Solution] 200 mg PO Q4H PRN PRN Reason: Cough Calcium/Magnesium/Zinc/Vitamin D 1 tab PO TID PRN PRN Reason: SUPPLEMENT metFORMIN HCL [Glucophage] 1,000 mg PO BID Insulin Glargine [Lantus Vial] 9 unit SQ HS Empagliflozin [Jardiance] 25 mg PO DAILY Acetaminophen Tab [Tylenol] 650 mg PO Q4H PRN PRN Reason: Fever And/ Or Pain Multivitamins, Thera [Multivitamin (formulary)] 1 tab PO DAILY Ibuprofen [Motrin Ib] 600 mg PO Q6H PRN PRN Reason: Pain Loperamide HCl [Imodium A-D] 4 mg PO QID PRN PRN Reason: Loose Stool Chlorpheniramine Maleate [Chlor-Trimeton] 4 mg PO Q4H PRN PRN Reason: Allergy Symptoms Insulin Regular, Human [NovoLIN R] See Protocol SQ W/LUNCH ondansetron HCL [Zofran] 8 mg PO Q6H PRN PRN Reason: Nausea And Vomiting Discontinued Doxazosin [Cardura] 2 mg PO DAILY Discharge Medication List Acetaminophen Tab [Tylenol] 650 mg PO Q4H PRN 09/30/23 [History] Calcium/Magnesium/Zinc/Vitamin D 1 tab PO TID PRN 09/30/23 [History] Chlorpheniramine Maleate [Chlor-Trimeton] 4 mg PO Q4H PRN 09/30/23 [History] Empagliflozin [Jardiance] 25 mg PO DAILY 09/30/23 [History] Hyoscyamine Sulfate [Levsin] 0.125 mg PO QID PRN 09/30/23 [History] Ibuprofen [Motrin Ib] 600 mg PO Q6H PRN 09/30/23 [History] Insulin Glargine [Lantus Vial] 9 unit SQ HS 09/30/23 [History] Insulin Regular, Human [NovoLIN R] See Protocol SQ W/LUNCH 09/30/23 [History] Loperamide HCl [Imodium A-D] 4 mg PO QID PRN 09/30/23 [History] Mag Hydrox/Aluminum Hyd/Simeth [Mylanta Maximum Strength Liq] 30 ml PO Q4H PRN 09/30/23 [History] Multivitamins, Thera [Multivitamin (formulary)] 1 tab PO DAILY 09/30/23 [History] Thiamine [Vitamin B-1] 100 mg PO DAILY 09/30/23 [History] guaiFENesin [guaiFENesin Oral Solution] 200 mg PO Q4H PRN 09/30/23 [History] metFORMIN HCL [Glucophage] 1,000 mg PO BID 09/30/23 [History] ondansetron HCL [Zofran] 8 mg PO Q6H PRN 09/30/23 [History] Atorvastatin [Lipitor] 20 mg PO HS #90 tablet 10/02/23 [Rx] Nitroglycerin Sl Tabs [Nitrostat] 0.4 mg SUBLINGUAL Q5M PRN #20 tab 10/02/23 [Rx] amLODIPine [Norvasc] 5 mg PO DAILY #90 tab 10/02/23 [Rx] chlordiazePOXIDE HCl [Librium] 50 mg PO TID #15 cap 10/02/23 [Rx] Follow up Appointment(s)/Referral(s): Pradko,Mata R, DO [Primary Care Provider] - 1-2 days Patient Instructions/Handouts: Chest Pain (DC) Activity/Diet/Wound Care/Special Instructions: Patient is returning to [place] Activity as tolerated Follow-up with cardiology outpatient Follow-up with primary care provider on discharge Continue taking medications as prescribed Continue Librium taper Discharge/Stand Alone Forms: AA Meetings [facility], AA Meetings [facility], Who Do I Call?, Community Resources, Outpatient Counseling, Inp Substance Abuse Facilities Discharge Disposition: OTHER INSTITUTION NOT DEFINED
== END 2023-10-02 16:05 | disposition other institution (70) ==
LOC: EC 16:04 → 6NMEDSUR 19:25
PROVIDERS: ADMIT Hospitalist; ATTEND Hospitalist
DX: R07.89 Other chest pain (principal); F10.231 Alcohol dependence with withdrawal delirium; E11.649 Type 2 diabetes mellitus with hypoglycemia without coma; R94.39 Abnormal result of other cardiovascular function study; I11.9 Hypertensive heart disease without heart failure; F10.229 Alcohol dependence with intoxication, unspecified; F17.210 Nicotine dependence, cigarettes, uncomplicated; F41.9 Anxiety disorder, unspecified; Y90.4 Blood alcohol level of 80-99 mg/100 ml; Z79.84 Long term (current) use of oral hypoglycemic drugs; Z79.4 Long term (current) use of insulin; Z79.899 Other long term (current) drug therapy
CPT/HCPCS: 96374; 99285; 36415; 93005; 93306; 93351; 80053 ×2; 80048; 83735 ×2; 84484 ×2; 85025 ×3; 85610; 85730; 83036; 71046; G0378 ×3; C1769 ×2; C1894; G0480; J2250; J2060; J2001; J3010; J1644; Q9967; 80320; 93458